=== PATIENT | female | born 1970 | race Hispanic/Latino ===

== ENCOUNTER 2022-10-25 02:38 | Inpatient (IN) | payer OTHER ==
[~2022-10-25] VITALS: Ht 165.1 cm; Wt 127.7 kg
[2022-10-25 03:26] LABS: BASOPHILS % (AUTO) 0.3 % (0.0-5.0); EOSINOPHILS % (AUTO) 1.2 % (0.0-8.0); LYMPHOCYTES % (AUTO) 26.4 % (21.0-51.0); MEAN CORPUSCULAR HEMOGLOBIN 25.8 pg (27.0-33.0); MEAN CORPUSCULAR HGB CONC 32.2 g/dL (32.0-36.0); MEAN CORPUSCULAR VOLUME 80.2 fL (79-99); MONOCYTES % (AUTO) 5.6 % (3.0-13.0); NEUTROPHILS % (AUTO) 66.1 % (40.0-77.0); PLATELET COUNT (AUTO) 395 K/uL (130-400); RED BLOOD CELL COUNT(AUTO) 5.11 MIL/uL (4.00-5.50); RED CELL DISTRIBUTION WIDTH 14.7 % (11.0-15.5); WHITE BLOOD COUNT (AUTO) 11.6 K/uL (4.8-10.8)
[2022-10-25] MEDS ORDERED: LORAZEPAM 1 MG TABLET PO ONE (03:30)
[2022-10-25 03:42] LABS: ALBUMIN 3.6 g/dL (3.5-5.0); CREATININE 0.8 mg/dL (0.5-1.5); POTASSIUM 3.8 mmol/L (3.5-5.1); TOTAL PROTEIN, SERUM 7.8 g/dL (6.0-8.3)
[2022-10-25 03:57] LABS: APPEARANCE,URINE CLEAR (CLEAR); BILIRUBIN,URINE NEGATIVE (NEGATIVE); COLOR,URINE COLORLESS (YELLOW); GLUCOSE, URINE (UA) >=1000 mg/dL (NEGATIVE); KETONES,URINE 5 mg/dL (NEGATIVE); NITRATE,URINE NEGATIVE (NEGATIVE); OCCULT BLOOD,URINE LARGE (NEGATIVE); PROTEIN,URINE NEGATIVE (NEGATIVE); UROBILINOGEN,URINE 0.2 mg/dL (0.2-1.0)
[2022-10-25 03:59] LABS: LEUKOCYTE ESTERASE ,URINE 25 Leu/uL (NEGATIVE)
[2022-10-25] MEDS ORDERED: INSULIN HUMULIN R 100 UNIT/ML 3ML IV ONE (04:00)
[2022-10-25] MEDS ORDERED: 0.9%NACL 1000ML 1,000 ML IV ONE (04:00)
[2022-10-25 04:02] LABS: AMPHET/METH SCREEN,URINE NEGATIVE (NEGATIVE); BACTERIA,URINE RARE /HPF (None Seen); BARBITURATE SCREEN, URINE NEGATIVE (NEGATIVE); BENZODIAZEPINES SCREEN,URINE NEGATIVE (NEGATIVE); CANNABINOID SCREEN,URINE POSITIVE (NEGATIVE); COCAINE SCREEN,URINE NEGATIVE (NEGATIVE); OPIATE SCREEN,URINE NEGATIVE (NEGATIVE); PHENCYCLIDINE SCREEN,URINE NEGATIVE (NEGATIVE); RBC,URINE TNTC /HPF (0-1); SQUAMOUS EPITHELIAL CELL,UR RARE /HPF (0-2)
[2022-10-25 04:09] LABS: ABG OXYGEN SATURATION 77.6 % (95.0-99.0); BASE EXCESS,VENOUS BLOOD GAS -0.1 (-2.0-3.0); HCO3,VENOUS BLOOD GAS 24.8 (21.0-28.0); PCO2,VENOUS BLOOD GAS 41 (32-45); PH,VENOUS BLOOD GAS 7.396 (7.350-7.450)
[2022-10-25] MEDS ORDERED: MORPHINE 2 MG SYG IV PRN (04:30)
[2022-10-25] MEDS ORDERED: MORPHINE 4 MG SYG IV PRN (04:30)
[2022-10-25] MEDS ORDERED: LACTATED RINGERS 1000ML 1,710 ML IV ONE (04:30)
[2022-10-25] MEDS: LACTATED RINGERS 1000ML 1,000 ML IV SCH ×2 (04:30→14:30)
[2022-10-25] MEDS ORDERED: ACETAMINOPHEN 325 MG TAB PO PRN (04:30)
[2022-10-25] MEDS ORDERED: ONDANSETRON 4MG INJ IV PRN (04:30)
[2022-10-25 05:17] LABS: CREATININE 0.8 mg/dL (0.5-1.5); POTASSIUM 3.9 mmol/L (3.5-5.1)
[2022-10-25 05:30] VITALS: BP 152/85
[2022-10-25] MEDS: INSULIN HUMULIN R 100 UNIT/ML 3ML SQ SCH ×4 (05:53→21:00)
[2022-10-25 08:00] VITALS: BP 149/92
[2022-10-25] MEDS: INSULIN GLARGINE 100 UNITS/ML 10 ML VIAL SQ SCH ×2 (08:18→21:05)
[2022-10-25] MEDS: FAMOTIDINE 20MG TAB PO SCH ×2 (08:19→21:03)
[2022-10-25] MEDS: ENOXAPARIN SODIUM 40 MG/0.4 ML SYRINGE SQ SCH (08:22)
[2022-10-25 12:00] VITALS: BP 152/85
[2022-10-25] MEDS: AMLODIPINE 5 MG TAB PO SCH (12:57)
[2022-10-25 16:00] VITALS: BP 148/81
[2022-10-25 20:11] VITALS: BP 152/90
[2022-10-25 23:26] VITALS: BP 142/74
[2022-10-26 04:59] VITALS: BP 153/79
[2022-10-26 05:10] LABS: BASOPHILS % (AUTO) 0.4 % (0.0-5.0); EOSINOPHILS % (AUTO) 2.2 % (0.0-8.0); HEMATOCRIT 39.8 % (36-48); LYMPHOCYTES % (AUTO) 31.3 % (21.0-51.0); MEAN CORPUSCULAR HEMOGLOBIN 25.7 pg (27.0-33.0); MEAN CORPUSCULAR HGB CONC 31.4 g/dL (32.0-36.0); MEAN CORPUSCULAR VOLUME 81.9 fL (79-99); MONOCYTES % (AUTO) 5.6 % (3.0-13.0); NEUTROPHILS % (AUTO) 60.1 % (40.0-77.0); PLATELET COUNT (AUTO) 356 K/uL (130-400); RED BLOOD CELL COUNT(AUTO) 4.86 MIL/uL (4.00-5.50); RED CELL DISTRIBUTION WIDTH 15.2 % (11.0-15.5); WHITE BLOOD COUNT (AUTO) 9.2 K/uL (4.8-10.8)
[2022-10-26 05:28] LABS: ALBUMIN 2.8 g/dL (3.5-5.0); CREATININE 0.5 mg/dL (0.5-1.5); MAGNESIUM 1.6 mg/dL (1.80-2.40); POTASSIUM 3.6 mmol/L (3.5-5.1); TOTAL PROTEIN, SERUM 6.8 g/dL (6.0-8.3)
[2022-10-26] MEDS: INSULIN GLARGINE 100 UNITS/ML 10 ML VIAL SQ SCH (06:11)
[2022-10-26] MEDS ORDERED: MAGNESIUM OXIDE 400 MG TABLET PO SCH (07:30)
[2022-10-26] MEDS ORDERED: INSULIN HUMULIN R 100 UNIT/ML 3ML SQ SCH ×2 (07:30→11:30)
[2022-10-26 08:00] VITALS: BP 149/77
[2022-10-26] MEDS ORDERED: AMLO5TAB4 PO (08:18)
[2022-10-26] MEDS: FAMOTIDINE 20MG TAB PO SCH (09:02)
[2022-10-26] MEDS: AMLODIPINE 5 MG TAB PO SCH (09:02)
[2022-10-26] MEDS: ENOXAPARIN SODIUM 40 MG/0.4 ML SYRINGE SQ SCH (09:03)
== END 2022-10-26 11:30 | disposition home or self-care (01) | DRG 638 ==
LOC: EDH 02:38 → EDHIP 02:39 → 4CH 05:04
PROVIDERS: ADMIT Internal Medicine; ATTEND Internal Medicine
DX: E11.65 Type 2 diabetes mellitus with hyperglycemia (principal); Z68.42 Body mass index [BMI] 45.0-49.9, adult; D72.829 Elevated white blood cell count, unspecified; E66.01 Morbid (severe) obesity due to excess calories; F41.9 Anxiety disorder, unspecified; Z79.84 Long term (current) use of oral hypoglycemic drugs
CPT/HCPCS: 36415; 36600; 71045; 80048; 80053; 80305; 81001; 82010; 82435; 82803; 82947; 82948; 83036; 83605; 83735; 84132; 84145; 84295; 84484; 85025; 86140; 93005; G0378; J1650; J1815; J7030; J7120

== ENCOUNTER 2023-01-23 05:32 | Emergency (ER) | payer BC, OTHER ==
[~2023-01-23 05:32] MED LIST: AMLO5TAB4 PO
[2023-01-23] MEDS ORDERED: HYDROXYZINE 50MG VIAL 50 MG/ML VIAL IM STA (05:35)
[2023-01-23 05:59] LABS: BASOPHILS % (AUTO) 0.4 % (0.0-5.0); EOSINOPHILS % (AUTO) 1.5 % (0.0-8.0); LYMPHOCYTES % (AUTO) 13.5 % (21.0-51.0); MEAN CORPUSCULAR HEMOGLOBIN 26.5 pg (27.0-33.0); MEAN CORPUSCULAR HGB CONC 31.8 g/dL (32.0-36.0); MEAN CORPUSCULAR VOLUME 83.3 fL (79-99); MONOCYTES % (AUTO) 4.3 % (3.0-13.0); NEUTROPHILS % (AUTO) 79.5 % (40.0-77.0); PLATELET COUNT (AUTO) 427 K/uL (130-400); RED BLOOD CELL COUNT(AUTO) 4.68 MIL/uL (4.00-5.50); WHITE BLOOD COUNT (AUTO) 13.3 K/uL (4.8-10.8)
[2023-01-23 06:00] VITALS: BP 139/67
[2023-01-23 06:19] LABS: ALBUMIN 3.9 g/dL (3.5-5.0); CREATININE 0.6 mg/dL (0.5-1.5); TOTAL PROTEIN, SERUM 7.9 g/dL (6.0-8.3)
[2023-01-23] MEDS ORDERED: BUSP15 PO (06:31)
== END 2023-01-23 06:46 | disposition home or self-care (01) ==
LOC: EDH 05:32
DX: C55 Malignant neoplasm of uterus, part unspecified (principal); F41.9 Anxiety disorder, unspecified
CPT/HCPCS: 99285; 82550; 84484; 80053; 85025; 36415; 96372; 93005; J3410

== ENCOUNTER 2025-08-21 02:43 | Emergency (ER) | payer BC ==
[~2025-08-21] VITALS: Ht 165.1 cm; Wt 137.9 kg
[~2025-08-21 02:43] MED LIST changes: +BUSP15 PO
--- NOTE | 2025-08-21 02:48 | NUR ---
UA CUP PROVIDED
[2025-08-21 03:49] LABS: IMMATURE GRANULOCYTE ABSOLUTE 0.03 K/uL (0-1); NUCLEATED RED BLOOD CELLS 0.0 % (0.0-0.19); PLATELET COUNT (AUTO) 306 K/uL (130-400); RED BLOOD CELL COUNT(AUTO) 4.85 MIL/uL (4.00-5.50); RED CELL DISTRIBUTION WIDTH 14.1 % (11.0-15.5); WHITE BLOOD COUNT (AUTO) 9.3 K/uL (4.8-10.8)
[2025-08-21] MEDS: CYCLOBENZAPRINE HCL 10 MG TABLET PO ONE (03:50)
[2025-08-21 03:58] LABS: CREATININE 0.6 mg/dL (0.5-1.0); GLOMERULAR FILTR. RATE CALC 107.0 mL/min (>90); GLUCOSE,RANDOM 130.0 mg/dL (70-105); SODIUM SERUM 138.0 mmol/L (136-145); UREA NITROGEN, BLOOD 15.0 mg/dL (7-18)
[2025-08-21 04:31] LABS: APPEARANCE,URINE CLEAR (CLEAR); GLUCOSE, URINE (UA) NEGATIVE (NEGATIVE); LEUKOCYTE ESTERASE ,URINE 25 Leu/uL (NEGATIVE); NITRATE,URINE NEGATIVE (NEGATIVE); OCCULT BLOOD,URINE NEGATIVE (NEGATIVE); SQUAMOUS EPITHELIAL CELL,UR RARE /HPF (0-2)
--- NOTE | 2025-08-21 04:46 | ERN ---
ED Note History of Present Illness Stated Complaint: HEADACHE Chief Complaint: Headache Time Seen by MD: 02:46 Dictation: This is a 54-year-old morbidly obese female who presented to the emergency room complaining of more of occipital headache in the neck pain which has been going on since 08/17/2025. She stated that it has been intermittent and she has tried [id number] medications and she comes in as the pain was severe enough. She denied any nausea vomitings blurred vision, diplopia motor weakness or seizure activity. No lacrimation or watering of the eyes or nasal drainage. And is not throbbing in nature. Pain is mostly located in the occipital area and upper part of the neck. She has had similar kind of pain before but it did not last this long. Temperature 98 pulse 98 respirations 20 blood pressure 176/89 with a pulse oximetry of 99% on room air Chronic medical problems include diabetes mellitus type 2, anxiety some history of uterine cancer in morbid obesity Allergies: Coded Allergies: No Known Drug Allergies (Unverified Allergy, Unknown, 10/25/22) Home Meds Active Scripts Buspirone HCl (Buspar) 15 Mg Tab, 15 MG PO DAILY for 30 Days, #30 TAB Prov:RANDELL JOSEPH MD 01/23/23 Amlodipine Besylate (Norvasc 5Mg Tab) 5 Mg Tablet, 5 MG PO DAILY for 30 Days, #30 TAB 1 Refill Prov:LAUREN DOLAN AGACN 10/26/22 Past Medical History Past Medical History: Anxiety, Diabetes-Type II Surgical History: Appendectomy, Hysterectomy, None Family History: Negative Social History: Negative History: Not Applicable RN Note Reviewed/Agreed w/PFSH: Yes Review of System Dictation Constitutional: Negative for fever,chills, and weight loss Eyes: Negative for injury, pain,redness, and discharge ENT: Negative for injury,pain or swelling Cardiovascular: Negative for chest pain, palpitations, and edema Respiratory: Negative for shortness of breath, cough, and wheezing, Abdomen/GI: Negative for abdominal pain, nausea, vomiting, diarrhea, and constipation Back: Negative for injury and pain : Negative for injury, bleeding and discharge MS/Extremity: Negative for injury and deformity Skin: Negative for rash, and discoloration Neuro: Positive for headache, denied weakness, numbness, tingling, and seizure Psych: Negative for suicide ideation, homicidal ideation, and hallucinations Initial Vital Sign VS Vital Signs Date Time Temp Pulse Resp B/P (MAP) Pulse Ox O2 Delivery O2 Flow Rate FiO2 08/21/25 02:44 98.1 98 20 176/89 99 Room Air 08/21/25 04:02 0 21 Physical Exam Dictation General: awake, alert, NAD extremely obese lady who is not in any distress Head/Face: Normocephalic, atraumatic Eyes: PERRL, EOMI, vision at baseline ENT: oral cavity clear, TMs clear, no signs of infection Neck: Trachea midline, supple, no nuchal rigidity Cardiovascular: RRR, normal S1/S2, No MRGs, no JVD Respiratory: CTAB, no respiratory distress, No rales or wheezes Abdomen: Soft, non-tender, non-distended, normal bowel sounds, no guarding or rebound. Skin: Warm, dry, normal turgor, no rash MS/Extremity: Pulses equal, no cyanosis, neurovascular intact, FROM Neuro: COAx4, GCS 15, strength 5/5, CN 2-12 intact, normal cerebellar exam, normal gait, Psych: Normal behavior, mood, and affect normal Extremities-trace edema without any palpable cords, Homans sign is negative Results (Laboratory/Radiology) Laboratory/Radiology Laboratory Tests Test 08/21/25 03:42 08/21/25 03:56 White Blood Count 9.3 K/uL (4.8-10.8) Red Blood Count 4.85 MIL/uL (4.00-5.50) Hemoglobin 13.9 g/dL (12.0-16.0) Hematocrit 42.0 % (36-48) Mean Corpuscular Volume 86.6 fL (79-99) Mean Corpuscular Hemoglobin 28.7 pg (27.0-33.0) Mean Corpuscular Hemoglobin Concent 33.1 g/dL (32.0-36.0) Red Cell Distribution Width 14.1 % (11.0-15.5) Platelet Count 306 K/uL (130-400) Mean Platelet Volume 9.5 fL (7.5-10.5) Immature Granulocyte % (Auto) 0.3 % (0-1) Neutrophils (%) (Auto) 68.7 % (40.0-77.0) Lymphocytes (%) (Auto) 21.9 % (21.0-51.0) Monocytes (%) (Auto) 7.3 % (3.0-13.0) Eosinophils (%) (Auto) 1.5 % (0.0-8.0) Basophils (%) (Auto) 0.3 % (0.0-5.0) Neutrophils # (Auto) 6.4 K/uL (1.8-7.7) Lymphocytes # (Auto) 2.0 K/uL (1.0-4.8) Monocytes # (Auto) 0.7 K/uL (0.1-1.0) Eosinophils # (Auto) 0.14 K/uL (0.00-0.70) Basophils # (Auto) 0.03 K/uL (0.00-0.20) Absolute Immature Granulocyte (auto 0.03 K/uL (0-1) Nucleated Red Blood Cells 0.0 % (0.0-0.19) Sodium Level 138 mmol/L (136-145) Potassium Level 4.3 mmol/L (3.5-5.1) Chloride Level 102 mmol/L (101-111) Carbon Dioxide Level 25 mmol/L (21-32) Blood Urea Nitrogen 15 mg/dL (7-18) Creatinine 0.6 mg/dL (0.5-1.0) Glomerular Filtration Rate Calc 107 mL/min (>90) Random Glucose 130 mg/dL (70-105) H Total Calcium 9.3 mg/dL (8.5-10.1) Urine Color LIGHT-YELLOW (YELLOW) Urine Appearance CLEAR (CLEAR) Urine pH 5.5 (5.0-8.0) Urine Specific May 1.016 (1.001-1.031) Urine Protein NEGATIVE mg/dL (NEGATIVE) Urine Glucose (UA) NEGATIVE mg/dL (NEGATIVE) Urine Ketones NEGATIVE mg/dL (NEGATIVE) Urine Occult Blood NEGATIVE (NEGATIVE) Urine Nitrate NEGATIVE (NEGATIVE) Urine Bilirubin NEGATIVE mg/dL (NEGATIVE) Urine Urobilinogen 0.2 mg/dL (0.2-1.0) Urine Leukocyte Esterase 25 Shailesh/uL (NEGATIVE) H Urine RBC 0-1 /HPF (0-1) Urine WBC 2-5 /HPF (0-1) H Urine Squamous Epithelial Cells RARE /HPF (0-2) Urine Bacteria None /HPF (None Seen) Labs Reviewed?: Yes CT Scan Comment: REASON: headache ORDERING PHYSICIAN: JEAN-PAUL DUBOIS MD PROCEDURE: HEAD WO - CT HEAD/BRAIN W/O CONTRAST EXAM: Non-contrast CT examination of the Brain CLINICAL HISTORY: Headache. TECHNIQUE: Thin collimated axial CT images of the brain were obtained with sagittal and coronal reformatted images also submitted. CT scan is done according to ALARA (As Low as Reasonably Achievable). CONTRAST USED: None. COMPARISON: None provided. FINDINGS: No acute intracranial abnormality is present. No acute cortical infarction, hemorrhage, mass, or mass effect. No hydrocephalus or abnormal extra-axial fluid collections. The posterior fossa is unremarkable. The skull base and calvarium are intact. The included portions of the paranasal sinuses and mastoid air cells are clear. IMPRESSION: No acute intracranial abnormality is present. /[place] DICTATED BY: DREW GREEN Jr., MD DATE: 08/21/25550 ELECTRONICALLY SIGNED BY: DREW GREEN Jr., MD DATE: 08/21/25550 ED Course ED Course Orders Procedure Category Date Status Time Cbc With Differential LAB 08/21/25 Complete 02:54 Basic Metabolic Panel LAB 08/21/25 Complete 02:54 Ct Head/Brain W/O CT 08/21/25 Resulted Contrast 02:54 Ketorolac PHA 08/21/25 Complete Tromethamine 30mg/Ml 03:00 Cyclobenzaprine Hcl PHA 08/21/25 Complete (Cyclobenzaprine Hcl 03:00 Urinalysis LAB 08/21/25 Complete W/Microscopic 03:56 Current Medications Medications (Trade) Dose Ordered Sig/Wally Route PRN Reason Start Time Stop Time Status Last Admin Dose Admin Cyclobenzaprine HCl (Cyclobenzaprine HCl) 5 mg ONCE ONCE PO 08/21/25 03:00 08/21/25 03:01 DC 08/21/25 03:50 Ketorolac Tromethamine (toRADol) 30 mg ONCE ONCE IVP 08/21/25 03:00 08/21/25 03:01 DC 08/21/25 03:49 Vital Signs Date Time Temp Pulse Resp B/P (MAP) Pulse Ox O2 Delivery O2 Flow Rate FiO2 08/21/25 05:05 98.2 66 18 130/59 98 Room Air* 0 21 08/21/25 04:02 78 18 153/76 98 Room Air* 0 21 08/21/25 02:44 98.1 98 20 176/89 99 Room Air Medical Decision Making MDM Differential diagnosis: Tension headache, migraine headache, cluster headache, vascular headache, pseudotumor cerebri, arthritis of the TMJ This is a 54-year-old morbidly obese female who presented to the emergency room complaining of more of occipital headache in the neck pain which has been going on since 08/17/2025. She stated that it has been intermittent and she has tried [id number] medications and she comes in as the pain was severe enough. She denied any nausea vomitings blurred vision, diplopia motor weakness or seizure activity. No lacrimation or watering of the eyes or nasal drainage. And is not throbbing in nature. Pain is mostly located in the occipital area and upper part of the neck. She has had similar kind of pain before but it did not last this long. Temperature 98 pulse 98 respirations 20 blood pressure 176/89 with a pulse oximetry of 99% on room air Chronic medical problems include diabetes mellitus type 2, anxiety some history of uterine cancer in morbid obesity Labs reviewed CBC is with a normal limits BNP 7 shows a glucose of 130 but o therwise with a normal limits. Urinalysis showed mild positivity for leuko esterase but no WBCs or bacteria. CT scan of the head was unremarkable for any acute intracranial event. With the possibility of tension versus muscular pain from her and cervical area, patient was treated with pain medication and muscle relaxant and she responded very well without any complications. Rationale: Tests considered and ordered secondary to shared decision making include: Previous outside records reviewed: Old ER visits. Risk of complication and/or morbidity or mortality of patient management: None Medications-Per medication reconciliation Need for hospitalization: Patient does not meet criteria for hospitalization. Need for emergency major/minor surgery: No There are no social concerns with this patient. Prescription drug management Prescriptions will include symptomatic care Patient's prior external medical records from other ER visits were reviewed by me as indicated. Prior testing and results from previous visits were reviewed. Prior tests were taken into account with medical decision making and resource utilization, independent historian/historians were used to obtain complete medical history. I independently interpreted the test that were performed, results were reviewed by me and considered findings on radiology if ordered. Medical management and examination interpretation discussions were had by me with other qualified healthcare professionals as indicated for the patient's care. Problem List Problem List: (1) Tension headache (2) Paraspinal muscle spasm (3) Morbid obesity DX & DISP Disposition: Discharge Departure Impression: Primary Impression: Tension headache Additional Impressions: Paraspinal muscle spasm, Morbid obesity Condition: Stable Additional Instructions: Patient and the caregiver have been informed of all the diagnostic tests and the imaging conducted during the today's visit to the emergency room and has verbalized understanding of the results I have personally reviewed and interpreted all diagnostic exams performed here in the ER today as well as the vital signs documented by the nursing staff. The patient is now being discharged to home and should follow up with the primary care physician or the specialist as directed by the ER staff. Follow-up with primary care provider in 1 to 2 days. Take medications as directed here in the emergency room. Okay to continue home medications unless otherwise discussed during your visit in the emergency room today. Return to your nearest emergency room if symptoms worsen or if there is no improvement. Call 911 if you need immediate assistance. Take Tylenol or Motrin [id number] as needed and if no contraindications are present. Increase oral hydration. A wound culture or urine culture was ordered here in the emergency room department please follow-up with primary care provider and advise them to get repeat ports from our facility. If you had any Michael wrap/splints that were applied here, please do not remove them until you see your primary care or specialty. If headaches continue she needs to make an appointment with Neurology. Referrals: NIALL AN MD (PCP) JEAN-PAUL DUBOIS MD Aug 21, 2025 04:46
--- NOTE | 2025-08-21 04:52 | HMCIMG ---
EXAM: Non-contrast CT examination of the Brain CLINICAL HISTORY: Headache. TECHNIQUE: Thin collimated axial CT images of the brain were obtained with sagittal and coronal reformatted images also submitted. CT scan is done according to ALARA (As Low as Reasonably Achievable). CONTRAST USED: None. COMPARISON: None provided. FINDINGS: No acute intracranial abnormality is present. No acute cortical infarction, hemorrhage, mass, or mass effect. No hydrocephalus or abnormal extra-axial fluid collections. The posterior fossa is unremarkable. The skull base and calvarium are intact. The included portions of the paranasal sinuses and mastoid air cells are clear. IMPRESSION: No acute intracranial abnormality is present. /[place]
[2025-08-21 05:05] VITALS: BP 130/59; PULSE 66; RESP 18; TEMP 98.2; O2SAT 98
== END 2025-08-21 05:07 | disposition home or self-care (01) ==
LOC: EDH 02:43
DX: G44.209 Tension-type headache, unspecified, not intractable (principal); E66.01 Morbid (severe) obesity due to excess calories; M62.830 Muscle spasm of back; Z68.43 Body mass index [BMI] 50.0-59.9, adult; E11.9 Type 2 diabetes mellitus without complications; F41.9 Anxiety disorder, unspecified; Z79.899 Other long term (current) drug therapy; Z90.49 Acquired absence of other specified parts of digestive tract; Z90.710 Acquired absence of both cervix and uterus
CPT/HCPCS: 36415; 70450; 80048; 81001; 85025; 96374; 99284; 99285; J1885